=== PATIENT | female | born 1980 | race Caucasian/White ===

== ENCOUNTER 2018-01-29 09:52 | Emergency (ER) | payer BC, SELFPAY ==
[2018-01-29] MEDS ORDERED: Lidocaine 1% w/Epinephrine 1:100K 20 ML VIAL ONE (10:13)
== END 2018-01-29 11:03 | disposition home or self-care (01) ==
LOC: ERS 09:52
DX: L02.412 Cutaneous abscess of left axilla (principal)
CPT/HCPCS: 10060; J2001